=== PATIENT | male | born 1945 | race Asian ===

== ENCOUNTER 2022-02-23 15:55 | Emergency (ER) | payer MEDICARE, OTHER ==
[~2022-02-23] VITALS: Ht 165.1 cm; Wt 61.4 kg
[2022-02-23] MEDS ORDERED: HYDR25TA84 PO (16:02)
[2022-02-23] MEDS ORDERED: FURO20 PO (16:02)
[2022-02-23] MEDS ORDERED: AMLO-258 PO (16:02)
[2022-02-23] MEDS ORDERED: LOVA20TA73 PO (16:02)
[2022-02-23 17:20] VITALS: BP 133/78
[2022-02-23] MEDS ORDERED: HYDR10SY9 PO (17:34)
[2022-02-23] MEDS ORDERED: PERM60CR4 TP (17:34)
[2022-02-24] MEDS ORDERED: HYDR-4527 PO (12:15)
== END 2022-02-23 17:53 | disposition home or self-care (01) ==
LOC: EDBD 16:04 → EMS 16:04
DX: L29.9 Pruritus, unspecified (principal); E11.22 Type 2 diabetes mellitus with diabetic chronic kidney disease; I12.0 Hypertensive chronic kidney disease with stage 5 chronic kidney disease or end stage renal disease; N18.6 End stage renal disease; Z99.2 Dependence on renal dialysis
CPT/HCPCS: 82962; 99283

== ENCOUNTER 2022-03-19 11:16 | Emergency (ER) | payer MEDICARE, OTHER ==
[~2022-03-19] VITALS: Ht 162.6 cm; Wt 63.6 kg
[~2022-03-19 11:16] MED LIST: AMLO-258 PO; FURO20 PO; HYDR-4527 PO; HYDR10SY9 PO; HYDR25TA84 PO; LOVA20TA73 PO; PERM60CR4 TP
[2022-03-19] MEDS ORDERED: SODI5POW3 PO (11:35)
[2022-03-19] MEDS ORDERED: HydrOXYzine PAMOATE 50 MG CAPSULE PO ONE (12:30)
[2022-03-19 12:43] LABS: BASOPHILS % (AUTO) 1.3 % (0.0-2.0); EOSINOPHILS % (AUTO) 10.9 % (1.0-6.0); HEMOGLOBIN 9.4 g/dL (13.5-17.5); LYMPHOCYTES # (AUTO) 1.2 K/uL (1.0-4.8); LYMPHOCYTES % (AUTO) 17.3 % (22.0-44.0); MEAN CORPUSCULAR HGB CONC 33.8 G/dL (31.0-37.0); MEAN CORPUSCULAR VOLUME 95 fL (80-100); MONOCYTES # (AUTO) 0.5 K/uL (0.1-1.0); MONOCYTES % (AUTO) 7.1 % (2.0-9.0); NEUTROPHILS # (AUTO) 4.5 K/uL (1.8-7.7); NEUTROPHILS % (AUTO) 63.4 % (40.0-70.0); PLATELET COUNT (AUTO) 243 K/uL (150-450); RED BLOOD CELL COUNT(AUTO) 2.95 MIL/uL (4.50-5.90)
[2022-03-19 12:55] LABS: CALCIUM, TOTAL 8.6 mg/dL (8.8-10.5); CREATININE 3.09 mg/dL (0.60-1.30); POTASSIUM 4.1 mmol/L (3.5-5.1)
[2022-03-19 14:15] VITALS: BP 136/80
== END 2022-03-19 14:33 | disposition home or self-care (01) ==
LOC: EMS 11:22
DX: R42 Dizziness and giddiness (principal); F41.9 Anxiety disorder, unspecified; N18.9 Chronic kidney disease, unspecified; I10 Essential (primary) hypertension; E11.9 Type 2 diabetes mellitus without complications; Z88.0 Allergy status to penicillin; Z79.899 Other long term (current) drug therapy
CPT/HCPCS: 80048; 84484; 85025; 93005; 99284

== ENCOUNTER 2022-05-05 15:56 | Emergency (ER) | payer MEDICARE, OTHER ==
[~2022-05-05] VITALS: Ht 162.6 cm; Wt 56.8 kg
[~2022-05-05 15:56] MED LIST changes: +SODI5POW3 PO
[2022-05-05 17:20] LABS: COVID AG,FIA SOURCE NASAL SWAB
[2022-05-05 17:23] LABS: BASOPHILS % (AUTO) 0.2 % (0.0-2.0); EOSINOPHILS % (AUTO) 0 % (1.0-6.0); HEMATOCRIT 37.3 % (41-53); HEMOGLOBIN 11.9 g/dL (13.5-17.5); LYMPHOCYTES # (AUTO) 0.6 K/uL (1.0-4.8); LYMPHOCYTES % (AUTO) 8.1 % (22.0-44.0); MEAN CORPUSCULAR HEMOGLOBIN 31.1 pg (26.0-34.0); MEAN CORPUSCULAR HGB CONC 31.8 G/dL (31.0-37.0); MEAN CORPUSCULAR VOLUME 98 fL (80-100); MONOCYTES # (AUTO) 0.9 K/uL (0.1-1.0); MONOCYTES % (AUTO) 12.5 % (2.0-9.0); NEUTROPHILS # (AUTO) 5.5 K/uL (1.8-7.7); NEUTROPHILS % (AUTO) 79.2 % (40.0-70.0); PLATELET COUNT (AUTO) 205 K/uL (150-450); RED BLOOD CELL COUNT(AUTO) 3.82 MIL/uL (4.50-5.90); RED CELL DISTRIBUTION WIDTH 16.1 % (11.5-14.5)
[2022-05-05 17:34] LABS: CALCIUM, TOTAL 8.3 mg/dL (8.8-10.5); CREATININE 3.48 mg/dL (0.60-1.30)
[2022-05-05] MEDS ORDERED: NIRM1TAB5 PO (18:15)
[2022-05-05] MEDS ORDERED: BENZ-39 PO (18:16)
[2022-05-05 18:39] VITALS: BP 137/69
== END 2022-05-05 18:42 | disposition home or self-care (01) ==
LOC: EMS 15:56
DX: U07.1 COVID-19 (principal); E11.9 Type 2 diabetes mellitus without complications; I10 Essential (primary) hypertension; Z88.0 Allergy status to penicillin; Z20.822 Contact with and (suspected) exposure to COVID-19
CPT/HCPCS: 71046; 80048; 83880; 84484; 85025; 93005; 99285; 36415-L1; 36415-TC

== ENCOUNTER 2022-05-10 11:49 | Emergency (ER) | payer MEDICARE, OTHER ==
[~2022-05-10] VITALS: Ht 160 cm; Wt 68.2 kg
[~2022-05-10 11:49] MED LIST changes: +BENZ-39 PO; -HYDR-4527 PO; +NIRM1TAB5 PO; -PERM60CR4 TP
[2022-05-10 12:30] LABS: COVID AG,FIA SOURCE NASAL SWAB
[2022-05-10 14:00] VITALS: BP 131/63
== END 2022-05-10 15:12 | disposition home or self-care (01) ==
LOC: EMS 12:17
DX: J00 Acute nasopharyngitis [common cold] (principal); E11.9 Type 2 diabetes mellitus without complications; I10 Essential (primary) hypertension; N18.6 End stage renal disease; Z88.0 Allergy status to penicillin; Z20.822 Contact with and (suspected) exposure to COVID-19
CPT/HCPCS: 99283

== ENCOUNTER 2022-05-22 11:59 | Emergency (ER) | payer MEDICARE, OTHER ==
[~2022-05-22] VITALS: Ht 162.6 cm; Wt 59.1 kg
[2022-05-22] MEDS ORDERED: CALC0.253 PO (14:10)
[2022-05-22] MEDS: PredniSONE 20 MG TABLET PO ONE ×2 (14:27→14:29)
[2022-05-22] MEDS ORDERED: HYDR30OI13 TP (14:49)
[2022-05-22] MEDS ORDERED: ACETAMINOPHEN 325 MG TABLET PO ONE (15:00)
[2022-05-22 15:14] VITALS: BP 134/87
== END 2022-05-22 16:14 | disposition home or self-care (01) ==
LOC: EMS 12:08
DX: L29.9 Pruritus, unspecified (principal); M25.562 Pain in left knee; M10.9 Gout, unspecified; I12.0 Hypertensive chronic kidney disease with stage 5 chronic kidney disease or end stage renal disease; N18.6 End stage renal disease; Z90.49 Acquired absence of other specified parts of digestive tract; Z88.0 Allergy status to penicillin
CPT/HCPCS: 99282; J7512

== ENCOUNTER 2022-06-30 12:46 | Emergency (ER) | payer MEDICARE, OTHER ==
[~2022-06-30] VITALS: Ht 162.6 cm; Wt 56.8 kg
[~2022-06-30 12:46] MED LIST changes: +CALC0.253 PO; -HYDR10SY9 PO; +HYDR30OI13 TP; -NIRM1TAB5 PO; -SODI5POW3 PO
[2022-06-30 13:25] LABS: COVID AG,FIA SOURCE NASAL SWAB
[2022-06-30 14:05] LABS: INFLUENZA TYPE A NEGATIVE FOR TYPE A (NEGATIVE); INFLUENZA TYPE B NEGATIVE FOR TYPE B (NEGATIVE)
[2022-06-30] MEDS ORDERED: ACETAMINOPHEN 500 MG TABLET PO ONE (14:15)
[2022-06-30] MEDS ORDERED: GuaiFENesin/D-METHORPHAN [SUGAR-FREE] 200-20MG/10 ML SYRUP UDCUP PO ONE (14:15)
[2022-06-30 14:55] LABS: BASOPHILS % (AUTO) 1.2 % (0.0-2.0); EOSINOPHILS % (AUTO) 8.4 % (1.0-6.0); HEMOGLOBIN 10.3 g/dL (13.5-17.5); LYMPHOCYTES # (AUTO) 1.1 K/uL (1.0-4.8); LYMPHOCYTES % (AUTO) 17.9 % (22.0-44.0); MEAN CORPUSCULAR HEMOGLOBIN 30.7 pg (26.0-34.0); MEAN CORPUSCULAR HGB CONC 32.1 G/dL (31.0-37.0); MEAN CORPUSCULAR VOLUME 96 fL (80-100); MONOCYTES # (AUTO) 0.5 K/uL (0.1-1.0); MONOCYTES % (AUTO) 7.4 % (2.0-9.0); NEUTROPHILS # (AUTO) 4.1 K/uL (1.8-7.7); NEUTROPHILS % (AUTO) 65.1 % (40.0-70.0); PLATELET COUNT (AUTO) 269 K/uL (150-450); RED BLOOD CELL COUNT(AUTO) 3.34 MIL/uL (4.50-5.90); RED CELL DISTRIBUTION WIDTH 16.2 % (11.5-14.5)
[2022-06-30 15:06] LABS: CALCIUM, TOTAL 8.6 mg/dL (8.8-10.5); CREATININE 3.65 mg/dL (0.60-1.30); POTASSIUM 4.1 mmol/L (3.5-5.1)
[2022-06-30 15:11] LABS: BILIRUBIN,TOTAL 0.3 mg/dL (0.1-1.0); TOTAL PROTEIN, SERUM 7.5 g/dL (6.4-8.2)
[2022-06-30 15:14] VITALS: BP 136/62
[2022-06-30] MEDS ORDERED: GUAIFDM PO (15:40)
[2022-06-30] MEDS ORDERED: ACET-66 PO (15:40)
== END 2022-06-30 16:04 | disposition home or self-care (01) ==
LOC: EMS 13:13
DX: J20.9 Acute bronchitis, unspecified (principal); J06.9 Acute upper respiratory infection, unspecified; I12.9 Hypertensive chronic kidney disease with stage 1 through stage 4 chronic kidney disease, or unspecified chronic kidney disease; N18.4 Chronic kidney disease, stage 4 (severe); Z90.49 Acquired absence of other specified parts of digestive tract; Z20.822 Contact with and (suspected) exposure to COVID-19; Z88.0 Allergy status to penicillin
CPT/HCPCS: 71045; 80053; 84484; 85025; 87804; 93005; 99285; 36415-L1; 36415-TC